=== PATIENT | male | born 1975 | race Hispanic/Latino ===

== ENCOUNTER 2023-12-07 10:25 | Emergency (ER) | payer BC ==
[~2023-12-07] VITALS: Ht 167.6 cm; Wt 79.4 kg
[2023-12-07 11:25] LABS: BASOPHILS # (AUTO) 0.05 K/uL (0.00-0.20); BASOPHILS % (AUTO) 0.3 % (0.0-5.0); HEMATOCRIT 46.1 % (42-54); IMMATURE GRANULOCYTE ABSOLUTE 0.06 K/uL (0-1); LYMPHOCYTES # (AUTO) 1.3 K/uL (1.0-4.8); LYMPHOCYTES % (AUTO) 8.8 % (21.0-51.0); MEAN CORPUSCULAR HEMOGLOBIN 30.1 pg (27.0-33.0); MEAN CORPUSCULAR VOLUME 83.5 fL (79-99); MONOCYTES # (AUTO) 0.4 K/uL (0.1-1.0); MONOCYTES % (AUTO) 2.6 % (3.0-13.0); NEUTROPHILS # (AUTO) 12.7 K/uL (1.8-7.7); NEUTROPHILS % (AUTO) 87.9 % (40.0-77.0); PLATELET COUNT (AUTO) 244 K/uL (130-400); RED BLOOD CELL COUNT(AUTO) 5.52 MIL/uL (4.50-6.20); RED CELL DISTRIBUTION WIDTH 12.1 % (11.0-15.5); WHITE BLOOD COUNT (AUTO) 14.5 K/uL (4.8-10.8)
[2023-12-07 11:28] LABS: APPEARANCE,URINE CLEAR (CLEAR); BILIRUBIN,URINE NEGATIVE (NEGATIVE); COLOR,URINE LIGHT-YELLOW (YELLOW); GLUCOSE, URINE (UA) NEGATIVE (NEGATIVE); KETONES,URINE 100 mg/dL (NEGATIVE); LEUKOCYTE ESTERASE ,URINE NEGATIVE Leu/uL (NEGATIVE); NITRATE,URINE NEGATIVE (NEGATIVE); PH,URINE 7.5 (5.0-8.0); PROTEIN,URINE 20 mg/dL (NEGATIVE); UROBILINOGEN,URINE 0.2 mg/dL (0.2-1.0)
[2023-12-07 11:34] LABS: ADD UA MICROSCOPIC YES
[2023-12-07 11:49] LABS: ALBUMIN 4.2 g/dL (3.5-5.0); BILIRUBIN,TOTAL 0.7 mg/dL (0.2-1.0); CREATININE 0.8 mg/dL (0.5-1.5); POTASSIUM 3.8 mmol/L (3.5-5.1); TOTAL PROTEIN, SERUM 8.1 g/dL (6.0-8.3)
[2023-12-07 11:58] LABS: MUCUS,URINE RARE LPF (None Seen); SQUAMOUS EPITHELIAL CELL,UR RARE /HPF (0-2); WBC,URINE 0-1 /HPF (0-1)
[2023-12-07] MEDS: ONDANSETRON 4MG INJ IVP ONE (12:02)
[2023-12-07] MEDS: MORPHINE 4 MG SYG IVP ONE (12:02)
[2023-12-07] MEDS: ONDANSETRON 4MG INJ ONE (12:03)
[2023-12-07] MEDS: KETOROLAC 30MG VIAL (30MG/ML) IVP ONE (12:55)
[2023-12-07] MEDS: KETOROLAC 15MG/ML VIAL (15MG/ML) ONE (12:57)
[2023-12-07] MEDS ORDERED: IOHEXOL-350 75 ML VIAL IV ONE (14:44)
[2023-12-07] MEDS ORDERED: IBUP-2070 PO (16:21)
[2023-12-07 16:35] VITALS: BP 122/73; PULSE 76; RESP 18; O2SAT 97
== END 2023-12-07 16:52 | disposition home or self-care (01) ==
LOC: EDH 10:25
DX: K57.30 Diverticulosis of large intestine without perforation or abscess without bleeding (principal)
CPT/HCPCS: 99284; 74177; 96374; 96375; 80053; 83690; 85025; 81001; 36415; 93005; J2405; J2270; J1885; Q9967